=== PATIENT | female | born 1985 | race Caucasian/White ===

== ENCOUNTER → 2018-05-11 | Outpatient (CLI) | payer OTHER ==
[2018-05-11 13:58] LABS: HEMOGLOBIN 10.5 g/dl (12.0-15.5); MEAN CORPUSCULAR HEMOGLOBIN 21.2 pg (27.0-33.0); MEAN CORPUSCULAR VOLUME 70.6 fl (80.0-96.0); PLATELET COUNT, AUTOMATED 319 10^3/uL (150-450); RED BLOOD COUNT 4.96 10^6/uL (4.00-5.40); RED CELL DISTRIBUTION WIDTH 16.9 % (11.5-14.5); WHITE BLOOD COUNT 8.5 10^3/uL (4.0-10.0)
== END ==
LOC: M RAD 12:39
DX: N83.292 Other ovarian cyst, left side (principal); N93.8 Other specified abnormal uterine and vaginal bleeding
CPT/HCPCS: 76856

== ENCOUNTER 2018-09-06 07:54 | Day surgery (SDC) | payer OTHER ==
[~2018-09-06 07:54] MED LIST: LR 1,000 ML IV
[2018-09-06 08:29] LABS: HEMATOCRIT 42.3 % (36.0-47.0); HEMOGLOBIN 14.6 g/dl (12.0-15.5); MEAN CORPUSCULAR HEMOGLOBIN 28.6 pg (27.0-33.0); MEAN CORPUSCULAR HGB CONC 34.5 g/dl (32.0-36.5); MEAN CORPUSCULAR VOLUME 82.8 fl (80.0-96.0); PLATELET COUNT, AUTOMATED 241 10^3/uL (150-450); RED BLOOD COUNT 5.11 10^6/uL (4.00-5.40); RED CELL DISTRIBUTION WIDTH 14.9 % (11.5-14.5); WHITE BLOOD COUNT 7.1 10^3/uL (4.0-10.0)
[2018-09-06 09:02] LABS: CONTROL LINE UCG INT CTR LINE PRESENT; URINE PREG TEST NEGATIVE (NEGATIVE)
[2018-09-06] MEDS ORDERED: fentaNYL 250 MCG/5 ML INJECTION (J3010) As Ordered (10:33)
[2018-09-06] MEDS ORDERED: dexameTHASONE 4 MG/ML 1ML VIAL (J1100) As Ordered (10:33)
[2018-09-06] MEDS ORDERED: ONDANSETRON 4MG/2ML VIAL (J2405) As Ordered (10:33)
[2018-09-06] MEDS ORDERED: PROPOFOL 200 MG/20 ML VIAL As Ordered (10:33)
[2018-09-06] MEDS ORDERED: LIDOCAINE 2% INJ 100 MG/5 ML SDV (FOR ANES.) As Ordered (10:33)
[2018-09-06] MEDS ORDERED: ROCURONIUM BROMIDE 50 MG/5 ML VIAL As Ordered ×2 (10:33→10:36)
[2018-09-06] MEDS ORDERED: MIDAZOLAM INJ 2 MG/2 ML VIAL (J2250) As Ordered (10:33)
[2018-09-06] MEDS ORDERED: HYDROmorphone HCL 2 MG/ML 1ML VIAL (J1170) As Ordered (10:33)
[2018-09-06] MEDS ORDERED: METOCLOPRAMIDE INJ 10MG/2ML VIAL (J2765) As Ordered (10:42)
[2018-09-06] MEDS ORDERED: NEOSTIGMINE 10 MG/10 ML VIAL (J2710) As Ordered (10:46)
[2018-09-06] MEDS ORDERED: GLYCOPYRROLATE INJ 0.2 MG/ML 2 ML VIAL As Ordered ×3 (10:46)
[2018-09-06] MEDS: BUPIVACAINE HCL 0.25% 10 ML VIAL As Ordered (11:05)
[2018-09-06] MEDS: BUPIVACAINE HCL 0.25% 30 ML VIAL As Ordered (11:05)
[2018-09-06] MEDS: METHYLENE BLUE 0.5% (5MG/ML) 10 ML AMP (PROVAYBLUE)(Q9968 PER 1MG) As Ordered (11:07)
[2018-09-06] MEDS ORDERED: HYDROMORPHONE HCL 0.5 MG/ 0.5 ML SYRINGE (J1170 PER 1) IV (12:15)
[2018-09-06] MEDS ORDERED: METOCLOPRAMIDE INJ 10MG/2ML VIAL (J2765) IV (12:15)
[2018-09-06] MEDS: LR 1,000 ML IV ×2 (12:15→13:35)
[2018-09-06] MEDS ORDERED: ONDANSETRON 4MG/2ML VIAL (J2405) IV ×2 (12:15→13:00)
[2018-09-06] MEDS: fentaNYL 100 MCG/2 ML INJECTION (J3010) IV ×4 (12:20→12:35)
[2018-09-06] MEDS: PERCOCET 5MG/325MG TAB PO ×3 (12:32→21:44)
[2018-09-06] MEDS ORDERED: MORPHINE 4 MG/ML 1ML VIAL/SYRINGE (J2270) IV (13:00)
[2018-09-06] MEDS ORDERED: KETOROLAC 30 MG/ML VIAL (J1885) IV (13:00)
[2018-09-06] MEDS ORDERED: PERCOCET 5MG/325MG TAB PO (13:00)
[2018-09-06] MEDS: DOCUSATE SODIUM 100 MG CAP PO (21:00)
== END 2018-09-06 22:00 | disposition home or self-care (01) ==
LOC: M SDC 07:54 → M PED 12:58
DX: N92.0 Excessive and frequent menstruation with regular cycle (principal); K21.9 Gastro-esophageal reflux disease without esophagitis; D64.9 Anemia, unspecified; F32.9 Major depressive disorder, single episode, unspecified; R51 Headache; R06.83 Snoring; E66.9 Obesity, unspecified; Z68.39 Body mass index [BMI] 39.0-39.9, adult; Z79.899 Other long term (current) drug therapy; Z98.84 Bariatric surgery status; Z72.0 Tobacco use
CPT/HCPCS: 58571

== ENCOUNTER → 2019-02-19 | Outpatient (REF) | payer OTHER ==
[~2019-02-19] MED LIST changes: +BIOT1CAP2 PO; +EFFE150C2 PO; +FERR325T82 PO; -LR 1,000 ML IV; +OMEP20CA3 PO; +OXYC1TAB23 PO; +VITA100067 PO; +VITA500T3 PO
[2019-02-19 18:59] LABS: APPEARANCE, URINE CLEAR (CLEAR); BACTERIA, URINE AUTO NEGATIVE (NEGATIVE); BILIRUBIN, URINE AUTO NEGATIVE (NEGATIVE); BLOOD, URINE BLOOD NEGATIVE (NEGATIVE); COLOR, URINE YELLOW (YELLOW); GLUCOSE, URINE (UA) AUTO NEGATIVE (NEGATIVE); KETONE, URINE AUTO NEGATIVE (NEGATIVE); LEUKOCYTE ESTERASE, URINE AUTO NEGATIVE (NEGATIVE); NITRITE, URINE AUTO NEGATIVE (NEGATIVE); PROTEIN, URINE AUTO NEGATIVE (NEGATIVE); RBC, URINE AUTO 0 /HPF (0-3); SPECIFIC GRAVITY URINE AUTO 1.011 (1.002-1.035); SQUAMOUS EPITHELIAL CELL UR AU 0 /HPF (0-6); UROBILINOGEN, URINE AUTO 0.2 mg/dL (0.0-2.0); WBC, URINE AUTO 1 /HPF (0-3)
== END ==
LOC: M SMT 17:21
PROVIDERS: ATTEND Nurse Practitioner Women's Health
DX: R39.15 Urgency of urination (principal)

== ENCOUNTER 2019-05-25 14:44 | Emergency (ER) | payer OTHER ==
[~2019-05-25] VITALS: Ht 157.5 cm; Wt 102.3 kg
[~2019-05-25 14:44] MED LIST changes: +CYAN500T8 PO; +OMEP1CAP73 PO; -OMEP20CA3 PO; -VITA500T3 PO
[2019-05-25] MEDS ORDERED: HYDR-3363 (14:53)
[2019-05-25] MEDS ORDERED: CEPH500C PO (14:53)
[2019-05-25 16:46] LABS: BASO # 0.1 10^3/uL (0.0-0.2); BASO % 0.7 % (0.0-1.0); EOS # 0.2 10^3/uL (0.0-0.50); EOS % 1.5 % (0.0-3.0); HEMATOCRIT 44.6 % (36.0-47.0); HEMOGLOBIN 15.1 g/dl (12.0-15.5); LYMPH % 21.8 % (24.0-44.0); MEAN CORPUSCULAR HEMOGLOBIN 29.8 pg (27.0-33.0); MEAN CORPUSCULAR HGB CONC 33.9 g/dl (32.0-36.5); MONO # 0.8 10^3/uL (0.0-0.8); MONO % 5.5 % (0.0-5.0); NEUTROPHILS # 9.7 10^3/uL (1.8-7.7); NEUTROPHILS % 70.2 % (36.0-66.0); PLATELET COUNT, AUTOMATED 281 10^3/uL (150-450); RED BLOOD COUNT 5.07 10^6/uL (4.00-5.40); WHITE BLOOD COUNT 13.9 10^3/uL (4.0-10.0)
[2019-05-25] MEDS ORDERED: BACTRIM 160MG/800MG DS TAB PO ONE (17:00)
[2019-05-25] MEDS ORDERED: KETOROLAC 60 MG/2 ML VIAL (J1885) IM ONE (17:00)
--- NOTE | 2019-05-25 19:05 | REPVR ---
EXAM: US Left Non-Vascular Joint or Other Extremity Structure, Limited Lower Extremity EXAM DATE/TIME: 05/25/2019 6:30 PM CLINICAL HISTORY: 33 years old, female; Pain; Hip and thigh; Left; Additional info: Left buttock swelling, evaluate for abscess TECHNIQUE: Imaging protocol: Left US Non-Vascular Joint or Other Extremity Structure. Limited exam of the lower extremity. COMPARISON: No relevant prior studies available. FINDINGS: Soft tissues: Imaging in the area of clinical concern in the left demonstrates diffuse soft tissue edema within which a 1.7 x 1 x 2 cm hyperechoic mass is demonstrated with increased Doppler flow in the surrounding soft tissues. Finding is of uncertain significance. IMPRESSION: Imaging in the area of clinical concern in the left demonstrates diffuse soft tissue edema within which a 1.7 x 1 x 2 cm hyperechoic mass is demonstrated with increased Doppler flow in the surrounding soft tissues. Finding is of uncertain significance. Possible focus of fat necrosis or hemorrhage related to recent trauma to be considered. Electronically signed by: Terence Quintero On 05/25/2019 19:05:17 PM
[2019-05-25] MEDS ORDERED: BACT800T5 PO (19:40)
[2019-05-25] MEDS ORDERED: IBUP-1114 PO (19:40)
[2019-05-25 19:47] VITALS: BP 174/87
--- NOTE | 2019-06-02 20:55 | ED PDOC ---
Post-Departure Follow-Up dr winkler faxed formal report of us for fu Javy Coy MD Jun 02, 2019 20:55
== END 2019-05-25 19:49 | disposition home or self-care (01) ==
LOC: M ED 14:44
DX: L03.317 Cellulitis of buttock (principal); F33.9 Major depressive disorder, recurrent, unspecified; F41.9 Anxiety disorder, unspecified; Z79.899 Other long term (current) drug therapy
CPT/HCPCS: 36415; 76882; 80047; 85025; 96372; 99283; J1885

== ENCOUNTER 2019-05-26 11:10 | Emergency (ER) | payer OTHER ==
[~2019-05-26] VITALS: Ht 157.5 cm; Wt 102.3 kg
[~2019-05-26 11:10] MED LIST changes: +BACT800T5 PO; +CEPH500C PO; +HYDR-3363; +IBUP-1114 PO; -OMEP1CAP73 PO; +OMEP20CA4 PO
[2019-05-26 13:24] VITALS: BP 123/71
[2019-05-26] MEDS ORDERED: KETOROLAC TROMETHAMINE 10 MG TAB PO ONE (13:30)
== END 2019-05-26 13:34 | disposition home or self-care (01) ==
LOC: EEVIPCON 11:10 → M ED 11:10
DX: L03.317 Cellulitis of buttock (principal); D64.9 Anemia, unspecified; F33.9 Major depressive disorder, recurrent, unspecified; Z98.84 Bariatric surgery status; Z79.899 Other long term (current) drug therapy; F17.210 Nicotine dependence, cigarettes, uncomplicated

== ENCOUNTER 2019-10-24 12:12 | Emergency (ER) | payer OTHER ==
[~2019-10-24] VITALS: Ht 157.5 cm; Wt 98.8 kg
[~2019-10-24 12:12] MED LIST changes: +OMEP-172 PO; -OMEP20CA4 PO
[2019-10-24] MEDS ORDERED: HYDR-3713 PO (12:19)
[2019-10-24] MEDS ORDERED: AMOX500C PO (12:19)
[2019-10-24 14:48] LABS: BASO # 0.1 10^3/uL (0.0-0.2); BASO % 0.5 % (0.0-1.0); EOS % 0.1 % (0.0-3.0); HEMOGLOBIN 17.4 g/dl (12.0-15.5); LYMPH # 0.9 10^3/uL (1.5-5.0); LYMPH % 4.8 % (24.0-44.0); MEAN CORPUSCULAR HEMOGLOBIN 29.5 pg (27.0-33.0); MEAN CORPUSCULAR HGB CONC 33.5 g/dl (32.0-36.5); MEAN CORPUSCULAR VOLUME 88.3 fl (80.0-96.0); MONO # 0.6 10^3/uL (0.0-0.8); MONO % 3.5 % (0.0-5.0); NEUTROPHILS # 16.4 10^3/uL (1.5-8.5); NEUTROPHILS % 90.8 % (36.0-66.0); PLATELET COUNT, AUTOMATED 314 10^3/uL (150-450); RED BLOOD COUNT 5.89 10^6/uL (4.00-5.40); WHITE BLOOD COUNT 18.1 10^3/uL (4.0-10.0)
[2019-10-24] MEDS ORDERED: KETOROLAC 30 MG/ML VIAL (J1885) IV ONE (15:00)
[2019-10-24 15:10] LABS: ALBUMIN 4.7 GM/DL (3.2-5.2); BILIRUBIN,DIRECT 0.1 MG/DL (0.0-0.2); BILIRUBIN,TOTAL 0.5 MG/DL (0.2-1.0); C REACTIVE PROTEIN QUANTITATIV 2.76 MG/DL (0.00-0.30); CALCIUM LEVEL 9.3 MG/DL (8.5-10.1); CREATININE FOR GFR 1.38 MG/DL (0.55-1.30); ERYTHROCYTE SEDIMENTATION RATE 2 mm/hr (0-20); GLOMERULAR FILTRATION RATE 47.2 (>60); POTASSIUM SERUM 4.7 MEQ/L (3.5-5.1); TOTAL PROTEIN 8.4 GM/DL (6.4-8.2)
[2019-10-24] MEDS ORDERED: ISOVUE-370 76% 100ML VIAL (Q9967) As Ordered ONE (15:16)
--- NOTE | 2019-10-24 15:43 | REP ---
INDICATION: Right lower GI neck pain PROCEDURE: CT neck with contrast COMPARISON STUDIES: No prior similar studies FINDINGS: Oropharynx, nasopharynx, hypopharynx and larynx appear unremarkable. No significant lymphadenopathy or evidence of abscess or focal collection. Paranasal sinuses and mastoid air cells are clear. The visualized dentition is grossly unremarkable. Cervical vascularity appears unremarkable. Cervical spinal alignment within normal limits, without evidence of a limiting canal or foraminal stenosis. Soft tissues appear unremarkable. CONCLUSION: Unremarkable examination. Electronically Signed by Rod Slade MD 10/24/2019 03:34 P
[2019-10-24] MEDS ORDERED: NS 1,000 ML IV ONE (16:15)
--- NOTE | 2019-10-24 17:19 | REPVR ---
PROCEDURE INFORMATION: Exam: US Abdomen Limited, Right Upper Quadrant Exam date and time: 10/24/2019 5:09 PM Age: 33 years old Clinical indication: Abdominal pain; Acute; Additional info: Ruq pain TECHNIQUE: Imaging protocol: Real-time ultrasound of the abdomen with image documentation. Examination was focused on the right upper quadrant. COMPARISON: No relevant prior studies available. FINDINGS: Liver: Normal. No masses. Gallbladder: Well distended gallbladder. No calculi. Common bile duct: The common bile duct measures 5.3 mm. No mass or choledocholithiasis. Pancreas: Pancreas obscured by overlying bowel gas. Right kidney: Right kidney measures 11.3 x 6 x 4.4 cm. IMPRESSION: Unremarkable evaluation of the gallbladder and biliary tree. Electronically signed by: Terence Quintero On 10/24/2019 17:19:40 PM
[2019-10-24] MEDS ORDERED: CLEO300C2 PO (18:30)
[2019-10-24] MEDS ORDERED: ONDA4TAB6 PO (18:30)
[2019-10-24] MEDS ORDERED: KETO10TAB PO (18:30)
--- NOTE | 2019-10-24 18:53 | REP ---
Chest, two views: There is no evidence of acute infiltrate. No pleural effusion is seen. The heart is normal in size. The mediastinal silhouette is unremarkable. The visualized osseous structures are intact. IMPRESSION: No acute pulmonary disease. Electronically Signed by Sanford Stanton MD 10/24/2019 08:07 P
[2019-10-24] MEDS ORDERED: ACETAMINOPHEN 325 MG TAB As Ordered ONE (18:55)
[2019-10-24 18:59] VITALS: BP 181/99
[2019-10-24] MEDS ORDERED: ACETAMINOPHEN 325 MG TAB PO ONE (19:00)
== END 2019-10-24 19:01 | disposition home or self-care (01) ==
LOC: M ED 12:12
DX: E86.0 Dehydration (principal); K08.89 Other specified disorders of teeth and supporting structures; D72.829 Elevated white blood cell count, unspecified; R06.02 Shortness of breath; R05 Cough; R07.0 Pain in throat; R51 Headache; R42 Dizziness and giddiness; R09.82 Postnasal drip; R20.2 Paresthesia of skin; Z98.84 Bariatric surgery status; Z87.891 Personal history of nicotine dependence; Z79.899 Other long term (current) drug therapy
CPT/HCPCS: 36415; 70491; 71046; 76705; 80048; 80076; 81001; 83605; 85025; 85652; 86140; 87040; 87086; 96361; 96374; 99284; J1885; Q9967

== ENCOUNTER 2020-10-09 09:45 | Emergency (ER) | payer OTHER ==
[~2020-10-09] VITALS: Ht 157.5 cm; Wt 103.3 kg
[~2020-10-09 09:45] MED LIST changes: +AMOX500C PO; +CLEO300C2 PO; +CYAN500T14 PO; -CYAN500T8 PO; +HYDR-3713 PO; +KETO10TAB PO; -OMEP-172 PO; +OMEP1CAP73 PO; +ONDA4TAB6 PO
[2020-10-09] MEDS ORDERED: ALBU8.5H (09:58)
[2020-10-09] MEDS ORDERED: AZIT-12 (09:58)
[2020-10-09] MEDS ORDERED: CETI10CH PO (09:58)
[2020-10-09] MEDS ORDERED: ACETAMINOPHEN 500 MG TAB PO ONE (11:00)
[2020-10-09] MEDS ORDERED: BENZONATATE 100 MG CAP PO ONE (11:00)
--- NOTE | 2020-10-09 11:41 | REP ---
INDICATION: CP, cough COMPARISON: 10/24/2019 TECHNIQUE: Portable AP view of the chest FINDINGS: The mediastinum and cardiac silhouette are stable and within normal limits for portable technique. The lung donald are clear without acute consolidation, effusion, or pneumothorax. Skeletal structures are intact. IMPRESSION: No acute cardiopulmonary process appreciated. <Electronically signed by Shimon Ying > 10/09/20 [id number]
[2020-10-09 11:50] LABS: BASO # 0.1 10^3/uL (0.0-0.2); BASO % 0.6 % (0.0-1.0); EOS # 0.1 10^3/uL (0.0-0.5); EOS % 1.4 % (0.0-3.0); HEMATOCRIT 44.4 % (36.0-47.0); HEMOGLOBIN 14.4 g/dl (12.0-15.5); LYMPH # 2.3 10^3/uL (1.5-5.0); LYMPH % 26.7 % (24.0-44.0); MEAN CORPUSCULAR HEMOGLOBIN 27.7 pg (27.0-33.0); MEAN CORPUSCULAR HGB CONC 32.4 g/dl (32.0-36.5); MEAN CORPUSCULAR VOLUME 85.5 fl (80.0-96.0); MONO # 0.5 10^3/uL (0.0-0.8); MONO % 5.4 % (0.0-5.0); NEUTROPHILS # 5.7 10^3/uL (1.5-8.5); NEUTROPHILS % 65.7 % (36.0-66.0); PLATELET COUNT, AUTOMATED 301 10^3/uL (150-450); RED BLOOD COUNT 5.19 10^6/uL (4.00-5.40); WHITE BLOOD COUNT 8.7 10^3/uL (4.0-10.0)
[2020-10-09 12:18] LABS: BLOOD UREA NITROGEN 7 MG/DL (7-18); CALCIUM LEVEL 9.1 MG/DL (8.5-10.1); CARBON DIOXIDE LEVEL 26 MEQ/L (21-32); CHLORIDE LEVEL 110 MEQ/L (98-107); CPK CREATINE PHOSPHOKINASE 133 U/L (26-192); CREATININE FOR GFR 0.78 MG/DL (0.55-1.30); GLOMERULAR FILTRATION RATE > 60.0 (>60); GLUCOSE, FASTING 88 MG/DL (70-100); POTASSIUM SERUM 4.4 MEQ/L (3.5-5.1); SODIUM LEVEL 140 MEQ/L (136-145); TROPONIN I < 0.02 NG/ML (< 0.10)
[2020-10-09] MEDS ORDERED: PROAAER10 INH (12:31)
[2020-10-09] MEDS ORDERED: TESS100C PO (12:31)
[2020-10-09 12:57] VITALS: BP 128/88
--- NOTE | 2020-10-10 07:36 | ECGEPIP ---
[facility] - ED Test Date: 2020-10-09 Pat Name: SAHARA ALVAREZ Department: Room: - Gender: Female [employer]: RAMY : 1985 Requested By: WOOD Velarde PA-C Order Number: [id number] Reading MD: Laura Carvalho Measurements Intervals [place] Rate: 82 P: 55 VT: 154 QRS: 53 QRSD: 88 T: 38 QT: 362 QTc: 423 Interpretive Statements SINUS RHYTHM No prior Electronically Signed on 10-10-2020 7:36:00 EST by Laura Carvalho
== END 2020-10-09 13:00 | disposition home or self-care (01) ==
LOC: M ED 09:45
DX: J06.9 Acute upper respiratory infection, unspecified (principal); B34.9 Viral infection, unspecified; R05 Cough; M94.0 Chondrocostal junction syndrome [Tietze]; M79.10 Myalgia, unspecified site; R51.9 Headache, unspecified; R06.02 Shortness of breath; R07.9 Chest pain, unspecified; F32.9 Major depressive disorder, single episode, unspecified; Z98.84 Bariatric surgery status; Z79.899 Other long term (current) drug therapy

== ENCOUNTER 2021-07-08 18:32 | Emergency (ER) | payer OTHER ==
[~2021-07-08 18:32] MED LIST changes: +ALBU8.5H; +AZIT-12; +CETI10CH PO; +PROAAER10 INH; +TESS100C PO
[2021-07-08] MEDS: METOCLOPRAMIDE 10 MG TAB PO ONE (23:40)
[2021-07-08] MEDS: KETOROLAC 60MG 2ML VIAL IM ONE (23:40)
[2021-07-09 00:06] VITALS: BP 141/99
== END 2021-07-09 00:13 | disposition home or self-care (01) ==
LOC: M ED 18:32
DX: G43.119 Migraine with aura, intractable, without status migrainosus (principal); F17.210 Nicotine dependence, cigarettes, uncomplicated; Z98.84 Bariatric surgery status; Z79.899 Other long term (current) drug therapy
CPT/HCPCS: 96372; 99283; J1885

== ENCOUNTER 2021-09-23 13:02 | Emergency (ER) | payer OTHER ==
[~2021-09-23] VITALS: Ht 157.5 cm; Wt 104.5 kg
[2021-09-23] MEDS ORDERED: BOOSTRIX/ADACEL VACCINE (DIPHTH/PERTUSS/ACELL/TETANUS) 0.5ML SYR IM ONE (16:55)
[2021-09-23 17:51] VITALS: BP 132/88
== END 2021-09-23 17:53 | disposition home or self-care (01) ==
LOC: M ED 13:02
DX: S61.001A Unspecified open wound of right thumb without damage to nail, initial encounter (principal); W29.0XXA Contact with powered kitchen appliance, initial encounter; Y92.009 Unspecified place in unspecified non-institutional (private) residence as the place of occurrence of the external cause; Y93.9 Activity, unspecified; Y99.9 Unspecified external cause status; F41.9 Anxiety disorder, unspecified; F32.9 Major depressive disorder, single episode, unspecified; F17.200 Nicotine dependence, unspecified, uncomplicated; Z79.899 Other long term (current) drug therapy

== ENCOUNTER → 2022-05-19 | Outpatient (CLI) | payer OTHER ==
[2022-05-19 08:29] LABS: BASO # 0.1 10^3/uL (0.0-0.2); BASO % 0.8 % (0.0-1.0); EOS # 0.3 10^3/uL (0.0-0.5); EOS % 3.5 % (0.0-3.0); HEMATOCRIT 42.9 % (36.0-47.0); HEMOGLOBIN 14.5 g/dl (12.0-15.5); LYMPH # 2.5 10^3/uL (1.5-5.0); LYMPH % 32.9 % (24.0-44.0); MEAN CORPUSCULAR HEMOGLOBIN 28.7 pg (27.0-33.0); MEAN CORPUSCULAR HGB CONC 33.8 g/dl (32.0-36.5); MONO # 0.4 10^3/uL (0.0-0.8); MONO % 5.7 % (2.0-8.0); NEUTROPHILS # 4.3 10^3/uL (1.5-8.5); PLATELET COUNT, AUTOMATED 321 10^3/uL (150-450); RED BLOOD COUNT 5.05 10^6/uL (4.00-5.40); WHITE BLOOD COUNT 7.5 10^3/uL (4.0-10.0)
[2022-05-19 09:04] LABS: ALBUMIN 3.8 GM/DL (3.2-5.2); ALT/SGPT 31 U/L (12-78); BILIRUBIN,TOTAL 0.3 MG/DL (0.2-1.0); BLOOD UREA NITROGEN 14 MG/DL (7-18); CALCIUM LEVEL 8.8 MG/DL (8.5-10.1); CARBON DIOXIDE LEVEL 28 MEQ/L (21-32); CHLORIDE LEVEL 107 MEQ/L (98-107); CHOLESTEROL LEVEL 188 MG/DL (<200); CREATININE FOR GFR 0.89 MG/DL (0.55-1.30); GLOMERULAR FILTRATION RATE > 60.0 (>60); GLUCOSE, FASTING 92 MG/DL (70-100); HDL CHOLESTEROL 50 MG/DL (>40); LDL CHOLESTEROL 120 MG/DL (<100); NON-HDL-C 138 MG/DL; POTASSIUM SERUM 4.2 MEQ/L (3.5-5.1); SODIUM LEVEL 141 MEQ/L (136-145); TOTAL PROTEIN 6.8 GM/DL (6.4-8.2); TRIGLYCERIDES LEVEL 90 MG/DL (<150)
== END ==
LOC: M LAB 07:29
PROVIDERS: ATTEND Nurse Practitioner Family
DX: E78.5 Hyperlipidemia, unspecified (principal); F32.9 Major depressive disorder, single episode, unspecified